=== PATIENT | male | born 1930 | race Caucasian/White ===

== ENCOUNTER → 2017-06-04 | Outpatient (CLI) | payer MEDICARE ==
[~2017-06-04] MED LIST: ASPI325T; ASPI81CH3; ATOR10TA PO; METF500 PO; METO25 PO; PROT40TA PO; RANI150; RIVA20 PO
--- NOTE | 2017-06-05 10:49 | RSPPFT ---
DATE OF PROCEDURE: 06/04/17 COMMENTS: VOLUMES DYNAMIC: FVC and FEV1 moderately reduced. STATIC: FRC, RV and TLC moderately reduced. FLOWS: FEV1% and FEF 25-75 normal. DIFFUSION: Severely reduced. FLOW VOLUME LOOP: Restrictive configuration. IMPRESSION: Moderate to severe restrictive ventilatory defect with a severe reduction in diffusion consistent with the clinical diagnosis of pulmonary fibrosis. There is some improvement post-bronchodilator.
== END ==
LOC: PHRSP 10:33
PROVIDERS: ATTEND Internal Medicine
DX: J84.10 Pulmonary fibrosis, unspecified (principal)
CPT/HCPCS: 94060; 94618; 94726; 94729

== ENCOUNTER 2017-12-14 18:20 | Inpatient (IN) ==
[2017-12-14] MEDS ORDERED: Famotidine PF Inj 20 MG/2 ML Vial IV.PUSH ONE (19:24)
--- NOTE | 2017-12-14 19:28 | ED ---
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 Yesterday he was in [place] with similar complaint left-sided chest pain and shortness of breath it was sharp it lasted for over an hour. It is relieved now that he is in the ER last night he had a troponin done an EKG done that showed A. fib and he was discharged home now he comes back with the same complaint left-sided chest pain shortness of breath. Denies nausea denies vomiting denies diarrhea denies trauma he takes a baby aspirin a day he did not take anything further for this pain he did not take any antacids. He has a distant history of gastritis for which he takes a PPI which he said he no longer has gastritis. In the ER he is asking if he can leave he does not want to be here I say do you feel anxious and he says I do not feel anxious that is when ago. Patient does seem somewhat anxious and possibly hyper aware n to his body. 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 wearing) Associated symptoms: chest pain Treatment prior to arrival: aspirin Related Data Home oxygen amount: 2 liters Home Medications Medication Instructions Recorded Confirmed atorvastatin [Lipitor] 20 mg PO DAILY 12/13/17 12/14/17 mfvizqcvwei-qqoitikzx-rjaovvcp 1 inh INHALATION DAILY 12/13/17 12/14/17 [Trelegy Ellipta] metformin 1,000 mg PO BID 12/13/17 12/14/17 metoprolol succinate 50 mg PO DAILY 12/13/17 12/14/17 pantoprazole 40 mg PO DAILY 12/13/17 12/14/17 prednisone 7.5 mg PO DAILY 12/13/17 12/14/17 rivaroxaban [Xarelto] 20 mg PO DAILY 12/13/17 12/14/17 Allergies Allergy/AdvReac Type Severity Reaction Status Date / Time No Known Allergies Allergy Mild Abdominal Uncoded 12/14/17 19:01 Pain Review of Systems Except as stated in HPI: all other systems reviewed are negative [facility] Medical History Medical History Atrial fibrillation (Acute) Diabetes (Acute) GERD (gastroesophageal reflux disease) (Acute) High cholesterol (Acute) Pulmonary fibrosis (Acute) Social History Social History Substance History: No History of Abuse Second Hand Smoke Exposure: No Smoking Status: Former smoker Tobacco Type: Cigars How Often Do You Have a Drink Containing Alcohol: Never Recent Travel in [facility] within the Last 8 Weeks: No Recent Out of Country Travel within the Last 8 Weeks: No Exam Narrative Exam Narrative: GENERAL: Patient is awake alert nondiaphoretic non-nauseous good historian slightly anxious affect SKIN: Warm and dry. HEAD: Atraumatic. Normocephalic. EYES: Pupils equal and round. No scleral icterus. No injection or drainage. ENT: No nasal bleeding or discharge. Mucous membranes pink and moist. NECK: Trachea midline. No JVD. CARDIOVASCULAR: Irregularly irregular but rate controlled- 83 bpm A. fib palpated at his pulse as well RESPIRATORY: Diffuse coarse breath sounds in all garcia heard mostly with expiration Gastrointestinal : Abdomen soft, non-tender, nondistended. Hepatic and splenic margins not palpable. MUSCULOSKELETAL: Extremities without clubbing, cyanosis, or edema. No obvious deformities. NEUROLOGICAL: Awake and alert. No obvious cranial nerve deficits. Motor grossly within normal limits. Five out of 5 muscle strength in the arms and legs. Normal speech. PSYCHIATRIC: Appropriate mood and affect; insight and judgment normal. Course Initial Documented Vital Signs Temperature 98.6 F 12/14/17 19:02 Pulse Rate 87 12/14/17 19:02 Respiratory Rate 22 12/14/17 19:02 Blood Pressure 127/59 L 12/14/17 19:02 Pulse Oximetry 96 12/14/17 19:02 Last Documented Vital Signs Temperature 98.0 F 12/15/17 16:00 Pulse Rate 90 12/15/17 17:00 Respiratory Rate 14 12/15/17 16:00 Blood Pressure 157/75 H 12/15/17 16:00 Pulse Oximetry 95 12/15/17 16:00 Medical Decision Making Differential Diagnosis Differential Diagnosis: copd fibrosis of lungs worsening , broanchitis PNA other Lab Data Result diagrams: 12/15/17 03:45 12/15/17 03:45 Lab Results 12/14/17 12/14/17 12/15/17 Range/Units 20:50 20:50 03:45 WBC 8.1 9.0 (4.0-11.0) th/mm3 RBC 4.42 L 4.06 L (4.50-5.90) mil/mm3 Hgb 13.9 12.9 L (13.0-17.0) gm/dL Hct 41.3 37.8 L (39.0-51.0) % MCV 93.4 93.2 (80.0-100.0) fL MCH 31.4 31.8 (27.0-34.0) pg MCHC 33.6 34.2 (32.0-36.0) % RDW 15.0 14.5 (11.6-17.2) % Plt Count 185 183 (150-450) th/mm3 MPV 9.0 9.0 (7.0-11.0) fL Neut % (Auto) 80.9 H 72.3 H (16.0-70.0) % Lymph % (Auto) 12.8 19.7 (9.0-44.0) % Sharkey % (Auto) 5.2 6.8 (0.0-8.0) % Eos % (Auto) 0.3 0.8 (0.0-4.0) % Baso % (Auto) 0.8 0.4 (0.0-2.0) % Neut # (Auto) 6.5 6.5 (1.8-7.7) th/mm3 Lymph # (Auto) 1.0 1.8 (1.0-4.8) th/mm3 Sharkey # (Auto) 0.4 0.6 (0.0-0.9) th/mm3 Eos # (Auto) 0.0 0.1 (0.0-0.4) th/mm3 Baso # (Auto) 0.1 0.0 (0.0-0.2) th/mm3 WBC Differential . . Differential Comment Auto diff final Auto diff final Sodium 140 (136-145) meq/L Potassium 4.6 (3.5-5.1) meq/L Chloride 107 (98-107) meq/L Carbon Dioxide 25.1 (21.0-32.0) meq/L Anion Gap 8 (5-15) meq/L BUN 17 (7-18) mg/dL Creatinine 1.12 (0.60-1.30) mg/dL Estimated GFR 62 L (>89) mL/min Random Glucose 204 H (74-106) mg/dL Calcium 9.2 (8.5-10.1) mg/dL Total Bilirubin 0.3 (0.2-1.0) mg/dL AST 19 (15-37) U/L ALT 26 (12-78) U/L Alkaline Phosphatase 46 (45-117) U/L Troponin I 0.02 (0.02-0.05) ng/mL Total Protein 6.6 (6.4-8.2) g/dL Albumin 3.1 L (3.4-5.0) g/dL Lipase 93 (73-393) U/L 12/15/17 12/15/17 Range/Units 03:45 10:20 WBC (4.0-11.0) th/mm3 RBC (4.50-5.90) mil/mm3 Hgb (13.0-17.0) gm/dL Hct (39.0-51.0) % MCV (80.0-100.0) fL MCH (27.0-34.0) pg MCHC (32.0-36.0) % RDW (11.6-17.2) % Plt Count (150-450) th/mm3 MPV (7.0-11.0) fL Neut % (Auto) (16.0-70.0) % Lymph % (Auto) (9.0-44.0) % Sharkey % (Auto) (0.0-8.0) % Eos % (Auto) (0.0-4.0) % Baso % (Auto) (0.0-2.0) % Neut # (Auto) (1.8-7.7) th/mm3 Lymph # (Auto) (1.0-4.8) th/mm3 Sharkey # (Auto) (0.0-0.9) th/mm3 Eos # (Auto) (0.0-0.4) th/mm3 Baso # (Auto) (0.0-0.2) th/mm3 WBC Differential Differential Comment Sodium 143 (136-145) meq/L Potassium 3.8 D (3.5-5.1) meq/L Chloride 107 (98-107) meq/L Carbon Dioxide 26.1 (21.0-32.0) meq/L Anion Gap 10 (5-15) meq/L BUN 15 (7-18) mg/dL Creatinine 0.89 (0.60-1.30) mg/dL Estimated GFR 81 L (>89) mL/min Random Glucose 120 H (74-106) mg/dL Calcium 9.2 (8.5-10.1) mg/dL Total Bilirubin 0.3 (0.2-1.0) mg/dL AST 16 (15-37) U/L ALT 22 (12-78) U/L Alkaline Phosphatase 44 L (45-117) U/L Troponin I 0.04 0.04 (0.02-0.05) ng/mL Total Protein 6.5 (6.4-8.2) g/dL Albumin 3.1 L (3.4-5.0) g/dL Lipase (73-393) U/L Imaging Data Radiologist's impression: Chest X-Ray 12/15/17 00:00 CONCLUSION: Increasing interstitial infiltrates suggest superinfection upon chronic pulmonary fibrosis. Discharge Plan Discharge Disposition Patient Disposition: 01 Discharge Home Discharge Condition Condition: Good Discharge Order Discharge Orders: Discharge Order (Routine); Ordered 12/15/17 Ordered By: Buck Shea Discharge Details Anticipated Discharge Date: 12/15/17 Discharge Comment: [place] [facility] ED Provider: Gonzalo Stanton Primary Care Provider: Kingston Santiago Attending Provider: Buck Shea Other Providers: Paolo Canela Status ED Status: Left Department Discharge Information Discharge Date/Time: 12/15/17 02:18
[2017-12-14 21:09] LABS: Baso # (Auto) 0.1 th/mm3 (0.0-0.2); Baso % (Auto) 0.8 % (0.0-2.0); Eos % (Auto) 0.3 % (0.0-4.0); Hematocrit 41.3 % (39.0-51.0); Hemoglobin 13.9 gm/dL (13.0-17.0); Lymph % (Auto) 12.8 % (9.0-44.0); Mean Corpuscular HGB Conc 33.6 % (32.0-36.0); Mean Corpuscular Hemoglobin 31.4 pg (27.0-34.0); Mean Corpuscular Volume 93.4 fL (80.0-100.0); Mono # (Auto) 0.4 th/mm3 (0.0-0.9); Mono % (Auto) 5.2 % (0.0-8.0); Neut # (Auto) 6.5 th/mm3 (1.8-7.7); Neut % (Auto) 80.9 % (16.0-70.0); Platelet Count 185 th/mm3 (150-450); Red Blood Count 4.42 mil/mm3 (4.50-5.90); White Blood Count 8.1 th/mm3 (4.0-11.0)
[2017-12-14 21:26] LABS: Albumin 3.1 g/dL (3.4-5.0); Anion Gap 8 meq/L (5-15); Aspartate Aminotransferase 19 U/L (15-37); Blood Urea Nitrogen 17 mg/dL (7-18); Calcium 9.2 mg/dL (8.5-10.1); Carbon Dioxide 25.1 meq/L (21.0-32.0); Chloride 107 meq/L (98-107); Glomerular Filtration Rate 62 mL/min (>89); Glucose,Random 204 mg/dL (74-106); Lipase 93 U/L (73-393); Potassium 4.6 meq/L (3.5-5.1); Sodium 140 meq/L (136-145)
[2017-12-14 21:32] LABS: Alanine Aminotransferase 26 U/L (12-78); Alkaline Phosphatase 46 U/L (45-117); Total Protein 6.6 g/dL (6.4-8.2); Troponin I 0.02 ng/mL (0.02-0.05)
[2017-12-14] MEDS ORDERED: Metoprolol Tartrate 25 MG Tablet PO ONE (21:59)
[2017-12-14] MEDS ORDERED: Metoprolol Inj 5 MG/5 ML Vial IV.PUSH ONE (22:39)
[2017-12-14] MEDS ORDERED: Haloperidol Inj 5 MG/ML Ampul IV.PUSH ONE (22:39)
[2017-12-14] MEDS ORDERED: Labetalol HCl Inj 100 MG/20 ML Vial IV.PUSH ONE (22:40)
[2017-12-14] MEDS ORDERED: Temazepam 15 MG Capsule PO PRN (23:52)
[2017-12-14] MEDS ORDERED: Bisacodyl 10 MG Supp RECTAL PRN (23:52)
[2017-12-14] MEDS ORDERED: Acetaminophen 325 MG Tablet PO PRN (23:52)
--- NOTE | 2017-12-14 23:55 | P.HPIM ---
History of Present Illness Primary Care Physician: Kingston Santiago MD History of Present Illness: This is an 87-year-old male with a PMH of A. fib on Xarelto, Pulmonary Fibrosis , HTN and DM who presented to the ER w/ c/o SOB and chest pain starting earlier this evening. Recent eval at [facility] for similar complaints, noted to be in A- fib w/ HR 120's s/p Metoprolol 2.5mg IV w/ improvement and resolution of symptoms, and d/c'd home. Today, states he had recurrent SOB and chest pain. Chest pain is left sided, moderate, 6/10, non-radiating, associated w/ SOB. Notes significant SOB w/ minimal exertion. Follows w/ Dr Melissa as outpatient, no recent changes to meds. Also follows w/ Dr. Ortiz for Pulmonary Fibrosis. CXR from 12/13/17 w/ persistent pulmonary fibrosis. On arrival, BP 127 /59, HR 119, O2 sat 98% on RA, Afebrile. While in ER, HR up to 130-140's, S/p Lopressor 5mg IV, Labetalol 5mg IV and Metoprolol 12.5mg PO, HR 110-120's. Denies chest pain at this time. - Diagnosis (1) Afib (2) Chest pain (3) DM (diabetes mellitus) (4) Pulmonary fibrosis Review of Systems PAST FAMILY HISTORY: Reviewed. No h/o DM or CAD All other systems reviewed negative except as stated in HPI [facility] - History History Provided By: Patient - Medical History Medical History: Medical History (Last Updated 12/14/17 @ 19:04 by Leann Jama) Pulmonary fibrosis Atrial fibrillation Diabetes GERD (gastroesophageal reflux disease) High cholesterol - Tobacco History Second Hand Smoke Exposure: No Smoking Status: Never smoker - Alcohol History How Often Do You Have a Drink Containing Alcohol: Never - Substance Use History Substance History: No History of Abuse - Travel History Recent Travel in the [place] Within the Last 8 Weeks: No Recent Travel Out of the Country Within the Last 8 Weeks: No - Immunization History Tetanus Immunization: Unsure Hx Influenza Vaccine This Season: Unable to Assess Medications and Allergies Active Medications: Active Medications Acetaminophen (Tylenol) 650 mg PO Q4H PRN PRN Reason: Temp > 100.4 Al Hydroxide/Mg Hydroxide (Milk Of Magnesia Liq) 30 ml PO Q12H PRN PRN Reason: Mild Constipation Albuterol (Duoneb Neb (Prn)) 1 ampul NEB Q4HR NEB PRN PRN Reason: SOB/WHEEZING Bisacodyl (Dulcolax Supp) 10 mg RECTAL DAILY PRN PRN Reason: SEVERE CONSITIPATION Sodium Chloride (Ns Inj) 1,000 mls @ 100 mls/hr IV.CONT .Q10H SHANE Lactulose (Lactulose Liq) 30 ml PO DAILY PRN PRN Reason: SEVERE CONSITIPATION Metoprolol Succinate (Toprol Xl) 50 mg PO DAILY [facility] Non-Formulary Medication (Atorvastatin) 10 mg PO DAILY [facility] Non-Formulary Medication (Tcwuljiyhfo-Rnldinlcb-Iabymfok [Trelegy Ellipta]) 1 inh INHALATION DAILY [facility] Ondansetron HCl (Zofran Inj) 4 mg IV.PUSH Q6H PRN PRN Reason: NAUSEA OR VOMITING Pantoprazole Sodium (Protonix) 40 mg PO DAILY [facility] Rivaroxaban (Xarelto) 20 mg PO DAILY [facility] Senna/Docusate Sodium (Domenica-Colace) 1 tab PO BID [facility] Sennosides (Senokot) 17.2 mg PO Q12H PRN PRN Reason: Moderate Constipation Temazepam (Restoril) 15 mg PO HS PRN PRN Reason: INSOMNIA Allergies Allergy/AdvReac Type Severity Reaction Status Date / Time No Known Allergies Allergy Mild Abdominal Uncoded 12/14/17 19:01 Pain Home Medications Medication Instructions Recorded Confirmed Type atorvastatin 10 mg PO DAILY 12/13/17 12/14/17 History atorvastatin [Lipitor] 20 mg PO DAILY 12/13/17 12/14/17 History aaysjawmzph-skkquakts-bvfowuun 1 inh INHALATION DAILY 12/13/17 12/14/17 History [Trelegy Ellipta] metformin 1,000 mg PO BID 12/13/17 12/14/17 History metoprolol succinate 50 mg PO DAILY 12/13/17 12/14/17 History pantoprazole 40 mg PO DAILY 12/13/17 12/14/17 History prednisone 7.5 mg PO DAILY 12/13/17 12/14/17 History rivaroxaban [Xarelto] 20 mg PO DAILY 12/13/17 12/14/17 History Exam Vital signs: Vital Signs 12/14/17 19:02 12/14/17 19:39 12/14/17 19:40 Temperature 98.6 F Pulse Rate 87 83 Respiratory Rate 22 17 Blood Pressure 127/59 L Pulse Oximetry 96 95 12/14/17 21:36 12/14/17 23:08 Temperature Pulse Rate 119 H 112 H Respiratory Rate 16 16 Blood Pressure 154/98 H 139/62 Pulse Oximetry 98 98 Narrative: PE: GENERAL: Extremely pleasant elderly white male in no acute distress. Daughters at bedside. HEENT: PERRLA, EOMI. No scleral icterus or conjunctival pallor. No lid lag or facial droop. CARDIOVASCULAR: Afib w/ RVR, 120's. No obvious murmurs to auscultation. No chest tenderness to palpation. RESPIRATORY: No obvious rhonchi or wheezing. Clear to auscultation. Breath sounds equal bilaterally. GASTROINTESTINAL: Abdomen soft, non-tender, nondistended. BS normal. MUSCULOSKELETAL: Extremities without clubbing, cyanosis, or edema. No obvious deformities. NEUROLOGICAL: Awake, alert and oriented x4. No focal neurologic deficits. Moving both upper and lower extremities spontaneously. Results - Labs CBC & Chem 7: 12/14/17 20:50 12/14/17 20:50 Labs: Short CBC 12/14/17 Range/Units 20:50 WBC 8.1 (4.0-11.0) th/mm3 Hgb 13.9 (13.0-17.0) gm/dL Hct 41.3 (39.0-51.0) % Plt Count 185 (150-450) th/mm3 BMP 12/14/17 20:50 Sodium 140 Potassium 4.6 Chloride 107 Carbon Dioxide 25.1 BUN 17 Creatinine 1.12 Calcium 9.2 Cardiac Enzymes 12/14/17 Range/Units 20:50 Troponin I 0.02 (0.02-0.05) ng/mL Liver Function 12/14/17 Range/Units 20:50 Total Bilirubin 0.3 (0.2-1.0) mg/dL AST 19 (15-37) U/L ALT 26 (12-78) U/L Alkaline Phosphatase 46 (45-117) U/L Albumin 3.1 L (3.4-5.0) g/dL Caprini VTE Risk Assessment Caprini VTE Risk Assessment: Moderate/High Risk (score >= 2) Caprini Risk Assessment Model: Point Value = 1 Point Value = 2 Point Value = 3 Point Value = 5 Age 41-60 Minor surgery BMI > 25 kg/m2 Swollen legs Varicose veins or History of unexplained or recurrent spontaneous Oral contraceptives or hormone replacement Sepsis (< 1 month) Serious lung disease, including pneumonia (< 1 month) Abnormal pulmonary function Acute myocardial infarction Congestive heart failure (< 1 month) History of inflammatory bowel disease Medical patient at bed rest Age 61-74 Arthroscopic surgery Major open surgery (> 45 min) Laparoscopic surgery (> 45 min) Malignancy Confined to bed (> 72 hours) Immobilizing plaster cast Central venous access Age >= 75 History of VTE Family history of VTE Factor V Leiden Prothrombin [id number] Lupus anticoagulant Anticardiolipin antibodies Elevated serum homocysteine Heparin-induced thrombocytopenia Other congenital or acquired thrombophilia Stroke (< 1 month) Elective arthroplasty Hip, pelvis, or leg fracture Acute spinal cord injury (< 1 month) Prophylaxis Regimen: Total Risk Factor Score Risk Level Prophylaxis Regimen 0-1 Low Early ambulation 2 Moderate Order ONE of the following: *Sequential Compression Device (SCD) *Heparin 5000 units SQ BID 3-4 Higher Order ONE of the following medications: *Heparin 5000 units SQ TID *Enoxaparin/Lovenox 40 mg SQ daily (WT < 150 kg, CrCl > 30 mL/min) *Enoxaparin/Lovenox 30 mg SQ daily (WT < 150 kg, CrCl > 10-29 mL/min) *Enoxaparin/Lovenox 30 mg SQ BID (WT < 150 kg, CrCl > 30 mL/min) AND/OR *Sequential Compression Device (SCD) 5 or more Highest Order ONE of the following medications: *Heparin 5000 units SQ TID (Preferred with Epidurals) *Enoxaparin/Lovenox 40 mg SQ daily (WT < 150 kg, CrCl > 30 mL/min) *Enoxaparin/Lovenox 30 mg SQ daily (WT < 150 kg, CrCl > 10-29 mL/min) *Enoxaparin/Lovenox 30 mg SQ BID (WT < 150 kg, CrCl > 30 mL/min) AND *Sequential Compression Device (SCD) Assessment and Plan - Assessment (1) Afib Code(s): I48.91 - Unspecified atrial fibrillation Status: Acute (2) Chest pain Code(s): R07.9 - Chest pain, unspecified Status: Acute (3) DM (diabetes mellitus) Code(s): E11.9 - Type 2 diabetes mellitus without complications Status: Acute (4) Pulmonary fibrosis Code(s): J84.10 - Pulmonary fibrosis, unspecified Status: Acute - Plan A/P: 1. A-fib w/ RVR: h/o A-fib, now w/ RVR, s/p Metoprolol 5mg IV, Lopressor 5mg IV and Metoprolol 12.5mg PO w/ persistently elevated HR 110's, will give additional Lopressor IV, resume home medications. Admit to [facility]. Follows w/ Dr. Melissa as outpatient, will consult for further recommendations. 2. Chest Pain: Likely secondary to above, currently chest pain free. Initial trop negative, will check serial cardiac enzymes to eval for underlying ischemia. 3. Pulmonary Fibrosis: Chronic. Follows w/ Dr. Ortiz as outpatient, CXR from 12/13/17 w/ persistent pulmonary fibrosis, likely contributing to SOB, Xopenex prn in light of A-fib, resume home medications. 4. DM: Sliding scale w/ Accu-Cheks. Hold Metformin for now 5. DVT Prophylaxis: On Xarelto 6. Social work for d/c planning as needed 7. Case discussed w/ ER physician at length, labs/records/imaging reviewed by me.
[2017-12-15] MEDS ORDERED: RESP: Levalbuterol 1.25 MG/3 ML Neb (PRN) NEB (00:32)
[2017-12-15] MEDS: Sod Chloride 0.9% Inj 1,000 ML IV.CONT SCH ×2 (00:54→09:32)
[2017-12-15] MEDS ORDERED: Metoprolol Inj 5 MG/5 ML Vial IV.PUSH ONE (00:56)
--- NOTE | 2017-12-15 02:51 | XR ---
EXAM DATE: 12/15/2017 2:04 AM EDT AGE/SEX: 87 years / Male INDICATIONS: Chest pain. Short of breath. CLINICAL DATA: This is the patient's subsequent encounter. Patient reports that signs and symptoms h ave been present for 3 days and indicates a pain score of 6/10. MEDICAL/SURGICAL HISTORY: None. None. COMPARISON: [facility], CHEST 1V SINGLE AP, 12/13/2017. [facility], XR CHEST PA AND LAT, 12/21/2014. [facility], XR CH EST PA AND LAT, 05/26/2015. [facility], CT CHEST W/O CONTRAST, 06/04/2017. . FINDINGS: Confluent interstitial infiltrates in the central lower lungs bilaterally and in the lateral lower rambo ngs appears more prominent than on prior chest x-ray 2 days ago. There is now loss of delineation of most of the left hemidiaphragm. There is loss of delineation of both heart borders. CONCLUSION: Increasing interstitial infiltrates suggest superinfection upon chronic pulmonary fibrosis. Electronically signed by: Praveen Mon MD 12/15/2017 2:50 AM EDT
[2017-12-15 04:25] LABS: Baso % (Auto) 0.4 % (0.0-2.0); Eos # (Auto) 0.1 th/mm3 (0.0-0.4); Eos % (Auto) 0.8 % (0.0-4.0); Hematocrit 37.8 % (39.0-51.0); Hemoglobin 12.9 gm/dL (13.0-17.0); Lymph # (Auto) 1.8 th/mm3 (1.0-4.8); Lymph % (Auto) 19.7 % (9.0-44.0); Mean Corpuscular HGB Conc 34.2 % (32.0-36.0); Mean Corpuscular Hemoglobin 31.8 pg (27.0-34.0); Mean Corpuscular Volume 93.2 fL (80.0-100.0); Mono # (Auto) 0.6 th/mm3 (0.0-0.9); Mono % (Auto) 6.8 % (0.0-8.0); Neut # (Auto) 6.5 th/mm3 (1.8-7.7); Neut % (Auto) 72.3 % (16.0-70.0); Platelet Count 183 th/mm3 (150-450); Red Blood Count 4.06 mil/mm3 (4.50-5.90); Red Cell Distribution Width 14.5 % (11.6-17.2)
[2017-12-15 04:42] LABS: Albumin 3.1 g/dL (3.4-5.0); Anion Gap 10 meq/L (5-15); Aspartate Aminotransferase 16 U/L (15-37); Blood Urea Nitrogen 15 mg/dL (7-18); Calcium 9.2 mg/dL (8.5-10.1); Carbon Dioxide 26.1 meq/L (21.0-32.0); Chloride 107 meq/L (98-107); Glomerular Filtration Rate 81 mL/min (>89); Glucose,Random 120 mg/dL (74-106); Potassium 3.8 meq/L (3.5-5.1); Sodium 143 meq/L (136-145)
[2017-12-15 04:43] LABS: Alanine Aminotransferase 22 U/L (12-78)
[2017-12-15 04:45] LABS: Alkaline Phosphatase 44 U/L (45-117); Total Protein 6.5 g/dL (6.4-8.2); Troponin I 0.04 ng/mL (0.02-0.05)
[2017-12-15] MEDS ORDERED: Rivaroxaban 20 MG Tablet PO SCH (09:00)
[2017-12-15] MEDS ORDERED: Senna/Docusate Sodium 8.6/50 MG Tablet PO SCH (09:00)
[2017-12-15] MEDS ORDERED: [UNRECOGNIZED DRUG - OTHER] INH SCH (09:00)
--- NOTE | 2017-12-15 10:14 | P.PNIM ---
Subjective Interval history: This is an 87-year-old male with a PMH of A. fib on Xarelto, Pulmonary Fibrosis , HTN and DM who presented to the ER w/ c/o SOB and chest pain starting earlier this evening. Recent eval at [facility] for similar complaints, noted to be in A- fib w/ HR 120's s/p Metoprolol 2.5mg IV w/ improvement and resolution of symptoms, and d/c'd home. Today, states he had recurrent SOB and chest pain. Chest pain is left sided, moderate, 6/10, non-radiating, associated w/ SOB. Notes significant SOB w/ minimal exertion. Follows w/ Dr Melissa as outpatient, no recent changes to meds. Also follows w/ Dr. Ortiz for Pulmonary Fibrosis. CXR from 12/13/17 w/ persistent pulmonary fibrosis. On arrival, BP 127 /59, HR 119, O2 sat 98% on RA, Afebrile. While in ER, HR up to 130-140's, S/p Lopressor 5mg IV, Labetalol 5mg IV and Metoprolol 12.5mg PO, HR 110-120's. Denies chest pain at this time. 8-4 AWAIT CARDIAC INPUT WAS IN AFIB WITH RVR YESTERDAY AM LABS DW RN AND PT AND CM POSSIBLE DC IN NEXT 24 TO 48 HOURS Physical Exam Vital signs: Vital Signs 12/14/17 19:02 12/14/17 19:39 12/14/17 19:40 Temperature 98.6 F Pulse Rate 87 83 Respiratory Rate 22 17 Blood Pressure 127/59 L Pulse Oximetry 96 95 12/14/17 21:36 12/14/17 23:08 12/15/17 00:47 Temperature Pulse Rate 119 H 112 H 101 H Respiratory Rate 16 16 16 Blood Pressure 154/98 H 139/62 140/71 Pulse Oximetry 98 98 12/15/17 02:29 12/15/17 03:00 12/15/17 04:00 Temperature 97.5 F L 98.2 F Pulse Rate 81 72 87 Respiratory Rate 16 18 Blood Pressure 111/75 129/82 Pulse Oximetry 98 97 12/15/17 05:00 12/15/17 06:00 12/15/17 08:00 Temperature 97.7 F Pulse Rate 72 74 80 Respiratory Rate 16 Blood Pressure 176/74 H Pulse Oximetry 97 Intake & Output 12/14/17 12/15/17 12/15/17 18:59 06:59 18:59 Intake Total 240 / 240 1000 / 1000 Balance 240 / 240 1000 / 1000 Weight 75 kg Intake: IV 1000 / 1000 NS Inj 1,000 ML @ 100 mls/hr IV 1000 / 1000 .CONT .Q10H SHANE Rx#:[id number] Oral 240 / 240 Other: # Voids 1 Weight On Admission 75 kg Narrative: GENERAL: Awake alert and oriented 3 talkative and cooperative SKIN: Warm and dry. HEAD: Atraumatic. Normocephalic. EYES: Pupils equal and round. No scleral icterus. No injection or drainage. ENT: No nasal bleeding or discharge. Mucous membranes pink and moist. NECK: Trachea midline. No JVD. CARDIOVASCULAR: IRRegular rate and rhythm. S1-S2 no S3 or S4 RESPIRATORY: No accessory muscle use. Clear to auscultation. Breath sounds equal bilaterally. GASTROINTESTINAL: Abdomen soft, non-tender, nondistended. Hepatic and splenic margins not palpable. MUSCULOSKELETAL: Extremities without clubbing, cyanosis, or edema. No obvious deformities. NEUROLOGICAL: Awake and alert. No obvious cranial nerve deficits. Motor grossly within normal limits. Five out of 5 muscle strength in the arms and legs. Normal speech. PSYCHIATRIC: Appropriate mood and affect; insight and judgment normal. Results - Labs CBC & Chem 7: 12/15/17 03:45 12/15/17 03:45 Laboratory Results - last 24 hr 12/14/17 12/14/17 12/15/17 20:50 20:50 03:45 WBC 8.1 9.0 RBC 4.42 L 4.06 L Hgb 13.9 12.9 L Hct 41.3 37.8 L MCV 93.4 93.2 MCH 31.4 31.8 MCHC 33.6 34.2 RDW 15.0 14.5 Plt Count 185 183 MPV 9.0 9.0 Neut % (Auto) 80.9 H 72.3 H Lymph % (Auto) 12.8 19.7 Kemper % (Auto) 5.2 6.8 Eos % (Auto) 0.3 0.8 Baso % (Auto) 0.8 0.4 Neut # (Auto) 6.5 6.5 Lymph # (Auto) 1.0 1.8 Kemper # (Auto) 0.4 0.6 Eos # (Auto) 0.0 0.1 Baso # (Auto) 0.1 0.0 WBC Differential . . Differential Comment Auto diff final Auto diff final Sodium 140 Potassium 4.6 Chloride 107 Carbon Dioxide 25.1 Anion Gap 8 BUN 17 Creatinine 1.12 Estimated GFR 62 L Random Glucose 204 H Calcium 9.2 Total Bilirubin 0.3 AST 19 ALT 26 Alkaline Phosphatase 46 Troponin I 0.02 Total Protein 6.6 Albumin 3.1 L Lipase 93 12/15/17 03:45 WBC RBC Hgb Hct MCV MCH MCHC RDW Plt Count MPV Neut % (Auto) Lymph % (Auto) Kemper % (Auto) Eos % (Auto) Baso % (Auto) Neut # (Auto) Lymph # (Auto) Kemper # (Auto) Eos # (Auto) Baso # (Auto) WBC Differential Differential Comment Sodium 143 Potassium 3.8 D Chloride 107 Carbon Dioxide 26.1 Anion Gap 10 BUN 15 Creatinine 0.89 Estimated GFR 81 L Random Glucose 120 H Calcium 9.2 Total Bilirubin 0.3 AST 16 ALT 22 Alkaline Phosphatase 44 L Troponin I 0.04 Total Protein 6.5 Albumin 3.1 L Lipase - Imaging Impressions Chest X-Ray 12/15/17 00:00 CONCLUSION: Increasing interstitial infiltrates suggest superinfection upon chronic pulmonary fibrosis. Assessment and Plan - Assessment (1) Afib Code(s): I48.91 - Unspecified atrial fibrillation Status: Acute (2) Chest pain Code(s): R07.9 - Chest pain, unspecified Status: Acute (3) DM (diabetes mellitus) Code(s): E11.9 - Type 2 diabetes mellitus without complications Status: Acute (4) Pulmonary fibrosis Code(s): J84.10 - Pulmonary fibrosis, unspecified Status: Acute - Plan 1. A-fib w/ RVR: h/o A-fib, now w/ RVR, s/p Metoprolol 5mg IV, Lopressor 5mg IV and Metoprolol 12.5mg PO w/ persistently elevated HR 110's, will give additional Lopressor IV, resume home medications. Admit to [facility]. Follows w/ Dr. Melissa as outpatient, will consult for further recommendations. Await cardiology evaluation 2. Chest Pain: Likely secondary to above, currently chest pain free. Initial trop negative, will check serial cardiac enzymes to eval for underlying ischemia. Await cardiology evaluation 3. Pulmonary Fibrosis: Chronic. Follows w/ Dr. Ortiz as outpatient, CXR from 12/13/17 w/ persistent pulmonary fibrosis, likely contributing to SOB, Xopenex prn in light of A-fib, resume home medications. 4. DM: Sliding scale w/ Accu-Cheks. Hold Metformin for now 5. DVT Prophylaxis: On Xarelto 6. Social work for d/c planning as needed Await cardiac clearance A.m. labs if still here Code Status: Full code Discussed Condition With: RN and patient and family Discharge Planning: Once cleared by cardiology for discharge
[2017-12-15] MEDS ORDERED: predniSONE 5 MG Tablet PO SCH (10:15)
--- NOTE | 2017-12-15 13:37 | ECHRPT ---
Indication: ATRIAL FIB CONCLUSIONS The left ventricular systolic function is normal with an estimated ejection fraction in the range of 55-60%. Normal left ventricular size. Wall thickness is normal. No regional wall motion abnormalities are present. Mild thickening of the mitral valve leaflets. mild to moderate mitral valve regurgitation. Diffuse calcification of the aortic valve. Moderate aortic valve regurgitation. There is trace tricuspid valve regurgitation. The estimated pulmonary arterial pressure is 48.9 mmHg. BP: / HR: Rhythm: Sinus MEASUREMENTS (Male / Female) Normal Values Technical Quality:Good 2D ECHO LV Diastolic Diameter PLAX 3.9 cm 4.2 - 5.9 / 3.9 - 5.3 cm LV Systolic Diameter PLAX 3.0 cm IVS Diastolic Thickness 1.1 cm 0.6 - 1.0 / 0.6 - 0.9 cm LVPW Diastolic Thickness 1.1 cm 0.6 - 1.0 / 0.6 - 0.9 cm LV Relative Wall Thickness 0.6 LVOT Diameter 1.6 cm LV Ejection Fraction MOD 4C 57.3 % LV Ejection Fraction 4C AL 58.4 % M-MODE Aortic Root Diameter MM 2.1 cm LA Systolic Diameter MM 4.1 cm LA Ao Ratio MM 2.0 AV Cusp Separation MM 1.4 cm DOPPLER AV Peak Velocity 164.0 cm/s AV Peak Gradient 10.8 mmHg AI Peak Velocity 452.5 cm/s AI Peak Gradient 81.9 mmHg AI Pressure Half Time 248.5 ms LVOT Peak Velocity 90.3 cm/s LVOT Peak Gradient 3.3 mmHg AV Area Cont Eq pk 1.1 cm MV Area PHT 5.8 cm Mitral E Point Velocity 98.2 cm/s Mitral A Point Velocity 116.0 cm/s Mitral E to A Ratio 0.8 LV E' Lateral Velocity 7.4 cm/s Mitral E to LV E' Lateral Ratio 13.3 LV E' Septal Velocity 4.3 cm/s Mitral E to LV E' Septal Ratio 22.9 TR Peak Velocity 312.0 cm/s TR Peak Gradient 38.9 mmHg Right Atrial Pressure 10.0 mmHg Pulmonary Artery Systolic Pressu 48.9 mmHg Right Ventricular Systolic Press 48.9 mmHg PV Peak Velocity 107.0 cm/s PV Peak Gradient 4.6 mmHg FINDINGS LEFT VENTRICLE The left ventricular systolic function is normal with an estimated ejection fraction in the range of 55-60%. Normal left ventricular size. Wall thickness is normal. No regional wall motion abnormalities are present. RIGHT VENTRICLE Normal right ventricular size and systolic function. LEFT ATRIUM The left atrial size is normal. RIGHT ATRIUM The right atrial size is normal. ATRIAL SEPTUM Normal atrial septal thickness without atrial level shunting by limited color doppler interrogation. AORTA The aortic root and proximal ascending aorta are normal in size on limited imaging. MITRAL VALVE Mild thickening of the mitral valve leaflets. [id number] mitral valve regurgitation. AORTIC VALVE Trileaflet aortic valve. Diffuse calcification of the aortic valve. Moderate aortic valve regurgitation. TRICUSPID VALVE Structurally normal tricuspid valve. There is trace tricuspid valve regurgitation. The estimated pulmonary arterial pressure is 48.9 mmHg. PULMONARY VALVE No pulmonary valve regurgitation or stenosis. VESSELS The inferior vena cava is normal in size. PERICARDIUM No pericardial effusion. Robin Robins MD, FACC, [facility] (Electronically Signed) Final Date:15 December 2017 13:36
--- NOTE | 2017-12-15 13:57 | ECG ---
Date Performed: 12/14/2017 Time Performed: 21:32:20 PTAGE: 87 years EKG: ATRIAL FIBRILLATION WITH RAPID VENTRICULAR RESPONSE MARKED LEFT AXIS DEVIATION LEFT BUNDLE BRANCH BLOCK ABNORMAL ECG Compared to PREVIOUS TRACING , now with [facility] DOCTOR: Suzy Melgar Interpretating Date/Time 12/15/2017 13:54:53
--- NOTE | 2017-12-15 17:28 | P.DS ---
Date of admission: 12/15/17 00:09 Primary care physician: Kingston Santiago MD Attending physician on discharge: Buck Shea Anticipated date of discharge: 12/15/17 Brief History from admission: This is an 87-year-old male with a PMH of A. fib on Xarelto, Pulmonary Fibrosis , HTN and DM who presented to the ER w/ c/o SOB and chest pain starting earlier this evening. Recent eval at [facility] for similar complaints, noted to be in A- fib w/ HR 120's s/p Metoprolol 2.5mg IV w/ improvement and resolution of symptoms, and d/c'd home. Today, states he had recurrent SOB and chest pain. Chest pain is left sided, moderate, 6/10, non-radiating, associated w/ SOB. Notes significant SOB w/ minimal exertion. Follows nina/ Dr Melissa as outpatient, no recent changes to meds. Also follows [facility]/ Dr. Ortiz for Pulmonary Fibrosis. CXR from 12/13/17 w/ persistent pulmonary fibrosis. On arrival, BP 127 /59, HR 119, O2 sat 98% on RA, Afebrile. While in ER, HR up to 130-140's, S/p Lopressor 5mg IV, Labetalol 5mg IV and Metoprolol 12.5mg PO, HR 110-120's. Denies chest pain at this time. DS: Diagnosis - Discharge Diagnosis (1) Afib Status: Chronic (2) Chest pain Status: Acute (3) DM (diabetes mellitus) Status: Chronic (4) Pulmonary fibrosis Status: Chronic DS: Summary Hospital Course: This is an 87-year-old male with a PMH of A. fib on Xarelto, Pulmonary Fibrosis , HTN and DM who presented to the ER w/ c/o SOB and chest pain starting earlier this evening. Recent eval at [facility] for similar complaints, noted to be in A- fib w/ HR 120's s/p Metoprolol 2.5mg IV w/ improvement and resolution of symptoms, and d/c'd home. Today, states he had recurrent SOB and chest pain. Chest pain is left sided, moderate, 6/10, non-radiating, associated w/ SOB. Notes significant SOB w/ minimal exertion. Follows rené Melissa as outpatient, no recent changes to meds. Also follows w/ Dr. Ortiz for Pulmonary Fibrosis. CXR from 12/13/17 w/ persistent pulmonary fibrosis. On arrival, BP 127 /59, HR 119, O2 sat 98% on RA, Afebrile. While in ER, HR up to 130-140's, S/p Lopressor 5mg IV, Labetalol 5mg IV and Metoprolol 12.5mg PO, HR 110-120's. Denies chest pain at this time. 8-4 AWAIT CARDIAC INPUT WAS IN AFIB WITH [facility] YESTERDAY AM LABS [facility] RN AND PT AND CM POSSIBLE DC IN NEXT 24 TO 48 HOURS cleared by cardiology NO CHANGES MADE DC TO HOME TODAY - Time Spent with Patient Total time spent providing and/or coordinating discharge services: Less than 30 minutes - Quality: VTE Deep Vein Thrombosis/Pulmonary Embolism Present on Admission: Yes Exam Vital signs: Vital Signs 12/14/17 19:02 12/14/17 19:39 12/14/17 19:40 Temperature 98.6 F Pulse Rate 87 83 Respiratory Rate 22 17 Blood Pressure 127/59 L Pulse Oximetry 96 95 12/14/17 21:36 12/14/17 23:08 12/15/17 00:47 Temperature Pulse Rate 119 H 112 H 101 H Respiratory Rate 16 16 16 Blood Pressure 154/98 H 139/62 140/71 Pulse Oximetry 98 98 12/15/17 02:29 12/15/17 03:00 12/15/17 04:00 Temperature 97.5 F L 98.2 F Pulse Rate 81 72 87 Respiratory Rate 16 18 Blood Pressure 111/75 129/82 Pulse Oximetry 98 97 12/15/17 05:00 12/15/17 06:00 12/15/17 07:00 Temperature Pulse Rate 72 74 77 Respiratory Rate Blood Pressure Pulse Oximetry 97 12/15/17 08:00 12/15/17 12:00 12/15/17 13:00 Temperature 97.7 F 98.2 F Pulse Rate 80 81 73 Respiratory Rate 16 14 Blood Pressure 176/74 H 129/71 Pulse Oximetry 97 95 12/15/17 16:00 Temperature 98.0 F Pulse Rate 84 Respiratory Rate 14 Blood Pressure 157/75 H Pulse Oximetry 95 Intake & Output 12/14/17 12/15/17 12/15/17 18:59 06:59 18:59 Intake Total 240 / 240 1000 / 1000 Balance 240 / 240 1000 / 1000 Weight 75 kg Intake: IV 1000 / 1000 NS Inj 1,000 ML @ 100 mls/hr IV 1000 / 1000 .CONT .Q10H SHANE Rx#:[id number] Oral 240 / 240 Other: # Voids 1 Weight On Admission 75 kg Narrative: GENERAL: Awake alert and oriented 3 talkative and cooperative SKIN: Warm and dry. HEAD: Atraumatic. Normocephalic. EYES: Pupils equal and round. No scleral icterus. No injection or drainage. ENT: No nasal bleeding or discharge. Mucous membranes pink and moist. NECK: Trachea midline. No JVD. CARDIOVASCULAR: IRRegular rate and rhythm. S1-S2 no S3 or S4 RESPIRATORY: No accessory muscle use. Clear to auscultation. Breath sounds equal bilaterally. GASTROINTESTINAL: Abdomen soft, non-tender, nondistended. Hepatic and splenic margins not palpable. MUSCULOSKELETAL: Extremities without clubbing, cyanosis, or edema. No obvious deformities. NEUROLOGICAL: Awake and alert. No obvious cranial nerve deficits. Motor grossly within normal limits. Five out of 5 muscle strength in the arms and legs. Normal speech. PSYCHIATRIC: Appropriate mood and affect; insight and judgment normal. Results Procedures completed during hospitalization: NONE Completed studies during hospitalization: Laboratory Results WBC 9.0 th/mm3 (4.0-11.0) 12/15/17 03:45 RBC 4.06 mil/mm3 (4.50-5.90) L 12/15/17 03:45 Hgb 12.9 gm/dL (13.0-17.0) L 12/15/17 03:45 Hct 37.8 % (39.0-51.0) L 12/15/17 03:45 MCV 93.2 fL (80.0-100.0) 12/15/17 03:45 MCH 31.8 pg (27.0-34.0) 12/15/17 03:45 MCHC 34.2 % (32.0-36.0) 12/15/17 03:45 RDW 14.5 % (11.6-17.2) 12/15/17 03:45 Plt Count 183 th/mm3 (150-450) 12/15/17 03:45 MPV 9.0 fL (7.0-11.0) 12/15/17 03:45 Neut % (Auto) 72.3 % (16.0-70.0) H 12/15/17 03:45 Lymph % (Auto) 19.7 % (9.0-44.0) 12/15/17 03:45 [place] % (Auto) 6.8 % (0.0-8.0) 12/15/17 03:45 Eos % (Auto) 0.8 % (0.0-4.0) 12/15/17 03:45 Baso % (Auto) 0.4 % (0.0-2.0) 12/15/17 03:45 Neut # (Auto) 6.5 th/mm3 (1.8-7.7) 12/15/17 03:45 Lymph # (Auto) 1.8 th/mm3 (1.0-4.8) 12/15/17 03:45 [place] # (Auto) 0.6 th/mm3 (0.0-0.9) 12/15/17 03:45 Eos # (Auto) 0.1 th/mm3 (0.0-0.4) 12/15/17 03:45 Baso # (Auto) 0.0 th/mm3 (0.0-0.2) 12/15/17 03:45 WBC Differential . 12/15/17 03:45 Differential Comment Auto diff final 12/15/17 03:45 Sodium 143 meq/L (136-145) 12/15/17 03:45 Potassium 3.8 meq/L (3.5-5.1) D 12/15/17 03:45 Chloride 107 meq/L (98-107) 12/15/17 03:45 Carbon Dioxide 26.1 meq/L (21.0-32.0) 12/15/17 03:45 Anion Gap 10 meq/L (5-15) 12/15/17 03:45 BUN 15 mg/dL (7-18) 12/15/17 03:45 Creatinine 0.89 mg/dL (0.60-1.30) 12/15/17 03:45 Estimated GFR 81 mL/min (>89) L 12/15/17 03:45 Random Glucose 120 mg/dL (74-106) H 12/15/17 03:45 Calcium 9.2 mg/dL (8.5-10.1) 12/15/17 03:45 Total Bilirubin 0.3 mg/dL (0.2-1.0) 12/15/17 03:45 AST 16 U/L (15-37) 12/15/17 03:45 ALT 22 U/L (12-78) 12/15/17 03:45 Alkaline Phosphatase 44 U/L (45-117) L 12/15/17 03:45 Troponin I 0.04 ng/mL (0.02-0.05) 12/15/17 10:20 Total Protein 6.5 g/dL (6.4-8.2) 12/15/17 03:45 Albumin 3.1 g/dL (3.4-5.0) L 12/15/17 03:45 Lipase 93 U/L (73-393) 12/14/17 20:50 Impressions Chest X-Ray 12/15/17 00:00 CONCLUSION: Increasing interstitial infiltrates suggest superinfection upon chronic pulmonary fibrosis. Labs on day of discharge: Labs from last 24 hours 12/15/17 12/15/17 12/15/17 10:20 03:45 03:45 WBC 9.0 RBC 4.06 L Hgb 12.9 L Hct 37.8 L MCV 93.2 MCH 31.8 MCHC 34.2 RDW 14.5 Plt Count 183 MPV 9.0 Neut % (Auto) 72.3 H Lymph % (Auto) 19.7 [place] % (Auto) 6.8 Eos % (Auto) 0.8 Baso % (Auto) 0.4 Neut # (Auto) 6.5 Lymph # (Auto) 1.8 [place] # (Auto) 0.6 Eos # (Auto) 0.1 Baso # (Auto) 0.0 WBC Differential . Differential Comment Auto diff final Sodium 143 Potassium 3.8 D Chloride 107 Carbon Dioxide 26.1 Anion Gap 10 BUN 15 Creatinine 0.89 Estimated GFR 81 L Random Glucose 120 H Calcium 9.2 Total Bilirubin 0.3 AST 16 ALT 22 Alkaline Phosphatase 44 L Troponin I 0.04 0.04 Total Protein 6.5 Albumin 3.1 L Lipase 12/14/17 12/14/17 20:50 20:50 WBC 8.1 RBC 4.42 L Hgb 13.9 Hct 41.3 MCV 93.4 MCH 31.4 MCHC 33.6 RDW 15.0 Plt Count 185 MPV 9.0 Neut % (Auto) 80.9 H Lymph % (Auto) 12.8 [place] % (Auto) 5.2 Eos % (Auto) 0.3 Baso % (Auto) 0.8 Neut # (Auto) 6.5 Lymph # (Auto) 1.0 [place] # (Auto) 0.4 Eos # (Auto) 0.0 Baso # (Auto) 0.1 WBC Differential . Differential Comment Auto diff final Sodium 140 Potassium 4.6 Chloride 107 Carbon Dioxide 25.1 Anion Gap 8 BUN 17 Creatinine 1.12 Estimated GFR 62 L Random Glucose 204 H Calcium 9.2 Total Bilirubin 0.3 AST 19 ALT 26 Alkaline Phosphatase 46 Troponin I 0.02 Total Protein 6.6 Albumin 3.1 L Lipase 93 - Impressions ITS Impressions Chest X-Ray 12/15/17 00:00 CONCLUSION: Increasing interstitial infiltrates suggest superinfection upon chronic pulmonary fibrosis. Discharge Plan - Discharge Disposition Patient Disposition: 01 Discharge Home - Discharge Condition Condition: Good - Discharge Order Discharge Orders: Discharge Order (Routine); Ordered 12/15/17 Ordered By: Buck Shea - Discharge Details Anticipated Discharge Date: 12/15/17 Discharge Comment: [facility] - Physicians Team Primary Care Provider: Kingston Santiago Attending Provider: Buck Shea
--- NOTE | 2017-12-15 17:33 | MB ---
cc: Paolo Canela MD DATE: 12/15/2017 CRIMINAL ANALYST: Dr. Kingston Perez. PRIMARY CARE PHYSICIAN: Dr. Kingston Santiago. REFERRING PHYSICIAN: Dr. Buck Shea. REASON FOR CONSULTATION: I was asked by Dr. Shea to evaluate patient with atrial fibrillation with rapid ventricular rate. HISTORY OF PRESENT ILLNESS: Edinson Mckeon is a very pleasant 87-year-old gentleman with a past medical history significant for pulmonary fibrosis, chronic atrial fibrillation, hypertension and diabetes mellitus. He was admitted for progressive shortness of breath, dyspnea on exertion and chest discomfort. On admission, he was noted to have ventricular rate of 110-120 BPM. He was given intravenous Lopressor and labetalol. His ventricular rate was controlled. His troponins are negative for acute coronary syndrome. This afternoon, he reports no chest discomfort or shortness of breath. His telemetry shows atrial fibrillation with a controlled ventricular rate 70s-80s BPM. He is anxious to go home. MEDICATIONS: Reviewed and noted. PAST MEDICAL HISTORY: As above. Pulmonary fibrosis, permanent atrial fibrillation, diabetes mellitus, gastroesophageal reflux disease, and hypercholesterolemia. SOCIAL HISTORY: He is and lives with his . He has never smoked. He does not drink alcohol. No illicit drug use. He is a retired dentist. REVIEW OF SYSTEMS: As above, 12-point review of systems reviewed and noted. No recent fever, chills, cough or sputum production. No recent gastrointestinal, genitourinary or neurologic symptoms. FAMILY HISTORY: Not pertinent to present illness. PHYSICAL EXAMINATION: VITAL SIGNS: Temperature 98.2, pulse 73, respirations 14, blood pressure 129/71, O2 saturation 95%. GENERAL: He is anicteric. PERRLA. No xanthelasma. Slight JVD. No carotid bruits. LUNGS: Clear to auscultation. HEART: Irregular rate and rhythm. Soft II/ systolic murmur at left lower sternal border. ABDOMEN: Soft and nontender. EXTREMITIES: Show no peripheral edema. LABORATORY DATA: Sodium 140, potassium 4.6, BUN 17, creatinine 1.12. Troponin 0.02, 0.04, 0.04. WBC is 8.1; hemoglobin 13.9; hematocrit is 41.3; platelet count 185,000. IMPRESSION: 1. Chronic atrial fibrillation with rapid ventricular rate, ventricular rate now controlled. 2. Troponin is negative for acute coronary syndrome. 3. Hypercholesterolemia. 4. Diabetes mellitus. 5. Pulmonary fibrosis. PLAN: 1. Continue metoprolol succinate 50 mg daily. 2. Continue Xarelto. 3. Atorvastatin as listed. 4. Okay to discharge home from a cardiac standpoint. 5. Instructed to follow up with Dr. Perez in 1-2 weeks for reevaluation. 6. Instructed to return to the emergency room for episodes of recurrent episodes of chest pain and increased shortness of breath. Thank you for allowing me to contribute to this patient's care. Thank you for this consultation. MD MAGEN Hawkins/KYLEE , 04:59 PM , 05:12 PM
[2017-12-18 18:32] VITALS: BP 157/75; PULSE 90; RESP 14; TEMP 98; O2SAT 95
== END 2017-12-15 18:08 | disposition home or self-care (01) ==
LOC: NEPE 18:20 → NEDA 12-15 00:09 → HCIS 12-15 01:59
PROVIDERS: ADMIT Hospitalist; ATTEND Hospitalist